=== PATIENT | male | born 1945 | race Caucasian/White ===

== ENCOUNTER 2021-02-14 14:28 | Emergency (ER) | payer MEDICARE, OTHER ==
[~2021-02-14 14:28] MED LIST: ALFUZOSIN HCL E10 MG PO; ASPIRIN EC81 MG PO; AZULFIDINE500 M1 PO; CYCLOBENZAPRINE10 MG PO; INDAPAMIDE1.25 MG PO; NAPROXEN500 MG PO; PERCOCET 5-3251 EACH PO; PLAQUENIL200 MG PO; PREVACID30 M1 PO; PROSCAR5 MG PO; RHEUMATREX2.5 MG PO; TAMSULOSIN HCL0.4 MG PO
[2021-02-14 15:19] LABS: BASOPHIL 0.7 % (0-2); EOSINOPHIL 1.1 % (0-7); HCT 39.6 % (42.0-52.0); HGB 12.8 g/dl (13.2-18.0); LYMPHOCYTE 14.5 % (15-48); MCH 30.2 pg (25.0-31.0); MCHC 32.3 g/dL (32.0-36.0); MCV 93.4 fL (78.0-100.0); MONOCYTE 7.1 % (0-12); MPV 11.6 fL (6.0-9.5); NRBC 0; PLT 233 K/uL (150-400); RBC 4.24 M/uL (4.70-6.00); RDW 15.1 % (11.5-14.0); WBC 7.2 K/uL (4.0-10.5)
[2021-02-14 15:27] LABS: INR 1.26 (0.9-1.2)
[2021-02-14 16:48] LABS: ALBUMIN 3.9 g/dL (3.4-5.0); BILIRUBIN - TOTAL 0.6 mg/dL (0.2-1.0); BUN/CREAT RATIO (CALC) 17.1 RATIO; CREATININE 1.23 mg/dL (0.67-1.17); GLOBULIN (CALCULATION) 3.2 g/dL; POTASSIUM 4.3 mmol/L (3.5-5.1); TOTAL PROTEIN 7.1 g/dL (6.4-8.2)
== END 2021-02-14 21:40 | disposition other institution (70) ==
LOC: FER 14:28
PROVIDERS: Emergency Medicine
DX: I48.91 Unspecified atrial fibrillation (principal); R10.11 Right upper quadrant pain
CPT/HCPCS: 36415; 71045; 80053; 83735; 83880; 84484; 85025; 85610; 85730; 93005; J1644

== ENCOUNTER 2021-04-11 12:28 | Emergency (ER) | payer MEDICARE, OTHER ==
[2021-04-11] MEDS ORDERED: NORCO 5-325 TA1 EACH PO (15:29)
== END 2021-04-11 15:50 | disposition home or self-care (01) ==
LOC: FER 12:28
DX: S16.1XXA Strain of muscle, fascia and tendon at neck level, initial encounter (principal); I48.91 Unspecified atrial fibrillation; I25.2 Old myocardial infarction; X58.XXXA Exposure to other specified factors, initial encounter; Y92.009 Unspecified place in unspecified non-institutional (private) residence as the place of occurrence of the external cause
CPT/HCPCS: 36415; 72125; 86140

== ENCOUNTER 2022-04-07 05:42 | Emergency (ER) | payer MEDICARE, OTHER ==
[~2022-04-07 05:42] MED LIST changes: +NORCO 5-325 TA1 EACH PO
[2022-04-07 06:20] LABS: BASOPHIL 0.7 % (0-2); HCT 39.2 % (42.0-52.0); HGB 12.4 g/dl (13.2-18.0); LYMPHOCYTE 13.2 % (15-48); MCH 29.1 pg (25.0-31.0); MCHC 31.6 g/dL (32.0-36.0); MONOCYTE 15.1 % (0-12); MPV 9.9 fL (6.0-9.5); NEUTROPHIL 68.1 % (41-80); NRBC 0; PLT 261 K/uL (150-400); RBC 4.26 M/uL (4.70-6.00); RDW 15.9 % (11.5-14.0); WBC 8.9 K/uL (4.0-10.5)
[2022-04-07 06:40] LABS: ALBUMIN 3.5 g/dL (3.4-5.0); BILIRUBIN - TOTAL 0.6 mg/dL (0.2-1.0); BUN/CREAT RATIO (CALC) 15.1 RATIO; CREATININE 1.46 mg/dL (0.67-1.17); GLOBULIN (CALCULATION) 3.1 g/dL; POTASSIUM 3.8 mmol/L (3.5-5.1); TOTAL PROTEIN 6.6 g/dL (6.4-8.2)
[2022-04-07 06:59] LABS: INR 1.31 (0.9-1.2); PROTHROMBIN TIME 15.6 SECONDS (11.8-13.4); PTT 32.7 SECONDS (24.4-34.7)
[2022-04-07 08:52] LABS: CORONAVIRUS 2019 SARS-COV-2 NEGATIVE (NEGATIVE); INFLUENZA A NAA NEGATIVE (NEGATIVE)
== END 2022-04-07 11:11 | disposition home or self-care (01) ==
LOC: FER 05:42
PROVIDERS: Internal Medicine
DX: R07.89 Other chest pain (principal); I12.9 Hypertensive chronic kidney disease with stage 1 through stage 4 chronic kidney disease, or unspecified chronic kidney disease; N18.32 Chronic kidney disease, stage 3b; I25.2 Old myocardial infarction; Z20.822 Contact with and (suspected) exposure to COVID-19
CPT/HCPCS: 36415; 71045; 80053; 83735; 83880; 84145; 84484; 85025; 85610; 85730; 93005; J3475; U0002